=== PATIENT | female | born 1995 | race Caucasian/White ===

== ENCOUNTER 2020-03-12 06:41 | Emergency (ER) | payer MEDICAID ==
[~2020-03-12] VITALS: Ht 160 cm; Wt 82.6 kg
[2020-03-12 06:48] VITALS: Ht 160 cm; Wt 82.6 kg
[2020-03-12 07:23] VITALS: BP 106/55
== END 2020-03-12 07:23 | disposition home or self-care (01) ==
LOC: ED 06:41
DX: S06.0X9A Concussion with loss of consciousness of unspecified duration, initial encounter (principal); W20.8XXA Other cause of strike by thrown, projected or falling object, initial encounter; Y93.89 Activity, other specified; Y92.89 Other specified places as the place of occurrence of the external cause; Y99.8 Other external cause status